=== PATIENT | male | born 1975 | race Two or more races ===

== ENCOUNTER 2018-02-06 03:16 | Emergency (ER) | payer OTHER ==
[~2018-02-06] VITALS: Ht 172.7 cm; Wt 89.8 kg
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
--- NOTE | 2018-02-06 03:29 | NUR ---
SAYRA JAQUEZ MADE AWARE
[2018-02-06] MEDS ORDERED: ONDANSETRON 4 MG TAB.RAPDIS SL ONE (03:30)
[2018-02-06] MEDS ORDERED: oxyCODONE/APAP (5/325 MG) 1 UDTAB TABLET PO ONE (03:30)
--- NOTE | 2018-02-06 03:30 | NUR ---
POLICE AT BEDSIDE FOR QUESTIONING
[2018-02-06] MEDS ORDERED: ONDANSETRON 4 MG TAB.RAPDIS ONE (03:34)
[2018-02-06] MEDS ORDERED: oxyCODONE/APAP (5/325 MG) 1 UDTAB TABLET ONE (03:34)
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
--- NOTE | 2018-02-06 03:38 | NUR ---
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
--- NOTE | 2018-02-06 03:40 | NUR ---
PT TO CT VIA WC
[2018-02-06] MEDS ORDERED: CEPHALEXIN MONOHYDRATE 500 MG CAPSULE PO ONE ×2 (04:28→04:30)
[2018-02-06 05:10] VITALS: BP 119/76
--- NOTE | 2018-02-06 05:10 | NUR ---
KNEE IMMOBILIZER PLACED. CRUTCHES DISPENSED AND GAIT TRAINING DONE
== END 2018-02-06 05:11 | disposition home or self-care (01) ==
LOC: ER 03:18
DX: S02.2XXA Fracture of nasal bones, initial encounter for closed fracture (principal); S00.03XA Contusion of scalp, initial encounter; S80.02XA Contusion of left knee, initial encounter; T51.91XA Toxic effect of unspecified alcohol, accidental (unintentional), initial encounter; S00.83XA Contusion of other part of head, initial encounter; F10.10 Alcohol abuse, uncomplicated; Y04.2XXA Assault by strike against or bumped into by another person, initial encounter; Y93.89 Activity, other specified; Y92.89 Other specified places as the place of occurrence of the external cause; Y99.8 Other external cause status
CPT/HCPCS: 29505; 70450; 70486; 72125; 73564; 99284; A4606; A6403; Q0162; Z7610